=== PATIENT | female | born 1965 | race African-American/Black ===

== ENCOUNTER 2018-11-13 10:39 | Emergency (ER) | payer OTHER ==
[~2018-11-13] VITALS: Ht 188 cm; Wt 90.7 kg
[2018-11-13 11:00] LABS: URINE BILIRUBIN NEGATIVE (Negative); URINE BLOOD NEGATIVE (Negative); URINE CLARITY CLEAR; URINE COLOR YELLOW; URINE GLUCOSE-RANDOM* 3+ (Negative); URINE KETONES TRACE (Negative); URINE LEUKOCYTES-REFLEX NEGATIVE (Negative); URINE NITRITE-REFLEX NEGATIVE (Negative); URINE PROTEIN (DIPSTICK) NEGATIVE (Negative); URINE UROBILINOGEN 0.2 E.U./dl (0.2-1.0)
[2018-11-13 11:01] LABS: ABSOLUTE NEUTROPHILS 7.4 thou/uL (1.4-8.2); BASOPHILS 0.6 % (0.0-2.0); EOSINOPHILS 0.7 % (0.0-3.0); HEMOGLOBIN 15.5 gm/dL (12.0-15.0); LYMPHOCYTES 19.6 % (24.0-44.0); MCH 23.3 pg (26.0-34.0); MCHC 32.2 g/dL (28.0-37.0); MCV 72.2 fL (80.0-100.0); MONOCYTES 4.5 % (1.0-8.0); POLYS 74.6 % (36.0-66.0); RBC 6.65 mil/uL (4.20-5.00); RDW 13.5 % (10.5-14.5); WBC 9.9 thou/uL (4.0-11.0)
[2018-11-13 11:06] LABS: ANION GAP 9 mmol/L (7-16); BUN 19 mg/dL (7-18); CALCIUM 10.4 mg/dL (8.5-10.1); CHLORIDE 98 mmol/L (98-107); CO2 26 mmol/L (21-32); CREATININE 1.3 mg/dL (0.6-1.0); GLUCOSE 482 mg/dL (74-106); POTASSIUM 4.6 mmol/L (3.5-5.1); SODIUM 133 mmol/L (136-145)
[2018-11-13] MEDS ORDERED: FLONASE 0.05%50 MCG NASAL (11:10)
[2018-11-13] MEDS ORDERED: ZYRTEC 10 MG TA10 MG PO (11:10)
[2018-11-13] MEDS ORDERED: GLUCOTROL5 MG PO (11:11)
[2018-11-13] MEDS ORDERED: METFORMIN HCL500 MG PO (11:11)
[2018-11-13 11:15] LABS: ALBUMIN 4.4 g/dL (3.4-5.0); LIPASE 130 U/L (73-393); SGOT 11 U/L (15-37); SGPT 25 U/L (30-65); TOTAL BILIRUBIN 0.5 mg/dL (<0.1-1.0); TOTAL PROTEIN 8.5 g/dL (6.4-8.2); TROPONIN-I <0.06 ng/mL (<0.06)
[2018-11-13 11:42] LABS: PLATELET COUNT 119 thou/uL (150-400)
[2018-11-13] MEDS ORDERED: AMLODIPINE BESY10 MG PO (11:54)
[2018-11-13] MEDS ORDERED: HYDROCHLOROTHIA25 M2 PO (11:55)
[2018-11-13] MEDS ORDERED: LANTUS100 UNIT/M SUBQ (11:56)
[2018-11-13] MEDS ORDERED: ATORVASTATIN CA40 MG PO (11:57)
[2018-11-13] MEDS ORDERED: ASPIR 8181 MG PO (11:57)
[2018-11-13] MEDS ORDERED: BENTYL 20 MG TA20 M1 PO (13:45)
[2018-11-13] MEDS ORDERED: ONDANSETRON HCL4 M2 PO (13:45)
[2018-11-13 14:00] VITALS: BP 122/72
--- NOTE | 2018-11-14 21:59 | EKG ---
[address] [address] [facility] [place] [address] ELECTROCARDIOGRAM REPORT Name: SILVINACATHYKendal JACKOSN [id number] Admission: 11/13/18 Attend Phys: Discharge: 11/13/18 Date of : 67 Report #: [id number] THIS REPORT FOR: //name// [facility] ED Test Date: 2018-11-13 Test Time: 11:08:34 Pat Name: CATHY COOL Department: Room: Gender: F [employer]: WOOD : 1965 Requested By: Alee Silverio Order Number: [id number] MD: Steven Cade Measurements Intervals [place] Rate: 89 P: 66 ID: [id number] QRS: 11 QRSD: 89 T: 59 QT: 375 QTc: 457 Interpretive Statements Sinus rhythm Probable left atrial enlargement Baseline wander in lead(s) II,III,aVF,V3,V4 No previous ECG available for comparison Electronically Signed On 11-14-2018 21:59:35 BIOLOGY MANAGER by Steven Cade [email or web address] <ELECTRONICALLY SIGNED> By: Steven Cade MD 11/14/18 2159 D: 02/1107 07 Steven Cade MD /TEVIN
== END 2018-11-13 14:01 | disposition home or self-care (01) ==
LOC: ER 10:39
PROVIDERS: Nurse Practitioner Family
DX: K52.9 Noninfective gastroenteritis and colitis, unspecified (principal); N17.9 Acute kidney failure, unspecified; R73.9 Hyperglycemia, unspecified